=== PATIENT | male | born 1995 | race Caucasian/White ===

== ENCOUNTER 2022-09-27 23:21 | Emergency (ER) | payer SELFPAY ==
[~2022-09-27] VITALS: Ht 188 cm; Wt 81.6 kg
[2022-09-27 23:50] VITALS: BP 141/68
--- NOTE | 2022-09-27 23:50 | NUR ---
TO [facility] FOR PREBOOK, [facility] [employer]
--- NOTE | 2022-09-28 01:26 | NUR ---
PT TO BED 04 WITH PD AT BEDSIDE
[2022-09-28] MEDS ORDERED: CEPH-588 PO (01:55)
[2022-09-28 02:07] VITALS: BP 141/68
--- NOTE | 2022-09-28 02:07 | NUR ---
PATIENT BIB [employer]. PATIENT EXAMINED BY DR. ARNOLD. PATIENT MEDICALLY CLEARED AND RELEASED IN CUSTODY IN STABLE CONDITION. ORIGINAL PRE-BOOK FORM GIVEN TO [employer] [facility].
== END 2022-09-28 02:07 | disposition home or self-care (01) ==
LOC: MED 23:21
DX: L03.114 Cellulitis of left upper limb (principal)
CPT/HCPCS: 99283